=== PATIENT | female | born 1955 | race Caucasian/White ===

== ENCOUNTER → 2017-08-06 | Outpatient (CLI) | payer OTHER ==
[~2017-08-06] MED LIST: CALTRATE-600 W600 MG PO; EFFEXOR; SUDAFED 24 HOU240 MG PO; VIT D
== END ==
LOC: MC.RAD 08:59
DX: Z12.31 Encounter for screening mammogram for malignant neoplasm of breast (principal); N63.10 Unspecified lump in the right breast, unspecified quadrant

== ENCOUNTER → 2017-08-13 | Outpatient (CLI) | payer OTHER | LOC: MC.RAD 09:13 | DX: N63.10 Unspecified lump in the right breast, unspecified quadrant (principal) ==

== ENCOUNTER → 2018-03-24 | Outpatient (CLI) | payer MEDICARE | LOC: MC.RAD 10:59 | DX: N60.01 Solitary cyst of right breast (principal) ==

== ENCOUNTER → 2018-08-23 | Outpatient (CLI) | payer MEDICARE, OTHER | LOC: MC.RAD 12:34 | DX: R92.2 Inconclusive mammogram (principal) | CPT/HCPCS: G0279 ==

== ENCOUNTER → 2019-10-30 | Outpatient (CLI) | payer MEDICARE, OTHER | LOC: MC.RAD 11:21 | DX: Z12.31 Encounter for screening mammogram for malignant neoplasm of breast (principal); N63.20 Unspecified lump in the left breast, unspecified quadrant ==

== ENCOUNTER → 2019-11-01 | Outpatient (CLI) | payer MEDICARE, OTHER | LOC: MC.RAD 13:51 | DX: N63.21 Unspecified lump in the left breast, upper outer quadrant (principal) ==

== ENCOUNTER → 2020-05-01 | Outpatient (CLI) | payer MEDICARE | LOC: MC.RAD 09:45 | DX: N63.21 Unspecified lump in the left breast, upper outer quadrant (principal) ==

== ENCOUNTER → 2021-06-18 | Outpatient (CLI) | payer MEDICARE, OTHER ==
[~2021-06-18] MED LIST changes: +CLARITIN 1010 MG/TAB PO; -EFFEXOR; +EFFEXOR XR75 MG/CAP PO; +PROAMATINE 5MG T5 MG PO; +PROBIOTIC DIGE1 EACH PO; +VITAMIN D31000 I1 PO
== END ==
LOC: MC.RAD 11:15
DX: Z12.31 Encounter for screening mammogram for malignant neoplasm of breast (principal)

== ENCOUNTER 2021-06-27 08:42 | Outpatient (CLI) | payer MEDICARE, OTHER ==
[~2021-06-27] VITALS: Ht 165.1 cm; Wt 59.0 kg
[2021-06-27 09:09] VITALS: BP 137/72; PULSE 50; TEMP 98.1
[2021-06-27 10:04] VITALS: BP 149/66; PULSE 53
[2021-06-27 10:20] VITALS: BP 150/70; PULSE 55
[2021-06-27 10:35] VITALS: BP 162/67; PULSE 54
[2021-06-27 10:45] VITALS: BP 158/69; PULSE 55
[2021-06-27 11:00] VITALS: BP 153/64; PULSE 54
--- NOTE | 2021-06-27 11:15 | NUR ---
Discharge instructions given to pt.pt verbalizes understanding.Pt escorted out by is nurse.
[2021-06-27 11:46] LABS: GLUCOSE,CSF 53 mg/dL (40-70); TOTAL PROTEIN,CSF 34 mg/dL (15-45)
[2021-06-27 11:56] LABS: CSF APPEARANCE CLEAR; CSF COLOR COLORLESS; CSF MONONUCLEAR 100 % (70-100); CSF POLYMORPHONUCLEAR 0 % (0-6); CSF RBC 14 /mm3 (0-0)
[2021-07-08 14:25] LABS: CSF IGG/ALBUMIN 0.11 (<=0.21); CSF,IGG 1.4 mg/dL (<=8.1)
[2021-07-08 15:08] LABS: CSF OLIG BD INTERPRETATION 0 bands (<2); SE OLIGOCLONAL BANDING 1 bands (())
[2021-07-09 16:31] LABS: ALBUMUN SERUM 4300 mg/dL (()); CSF SYNTHESIS RATE 0.21 mg/24 h (<=12); CSF-IGG INDEX 0.58 (<=0.85); IGG,SERUM 804 mg/dL (()); IGG/ALBUMIN SERUM 0.19 (<=0.40)
== END 2021-06-27 11:17 ==
LOC: COL.RAD 08:42
PROVIDERS: Psychiatry & Neurology Neurology
DX: R93.0 Abnormal findings on diagnostic imaging of skull and head, not elsewhere classified (principal)

== ENCOUNTER → 2021-06-27 | Outpatient (CLI) | payer MEDICARE, OTHER | LOC: ZCOL.LAB 11:59 | DX: G37.9 Demyelinating disease of central nervous system, unspecified (principal) ==

== ENCOUNTER → 2022-11-19 | Outpatient (CLI) | payer MEDICARE, BC | LOC: MC.RAD 10:44 | DX: N60.11 Diffuse cystic mastopathy of right breast (principal) ==